=== PATIENT | male | born 1995 | race Caucasian/White ===

== ENCOUNTER 2019-08-06 01:34 | Emergency (ER) | payer OTHER, SELFPAY ==
--- NOTE | ~2019-08-06 | CT_ITS ---
EXAMINATION: CT brain wo con DATE: 08/06/2019 02:08 INDICATION: Seizure. Posterior headache. History of concussions. TECHNIQUE: Computed tomography (CT) of the head was performed without intravenous contrast. The mA wa s adjusted according to patient size. Iterative reconstruction technique was employed. Exam dose: 60 5.33 mGy-cm total exam DLP. COMPARISON: None FINDINGS: No intracranial mass lesion or hemorrhage or cerebrovascular accident. No midline shift or mass effect. Normal masterson-white matter differentiation. Normal ventricular size. No subdural or epidur al hematoma. No fracture or bone destruction of the cranial vault. Included paranasal sinuses and mastoid air cells are normally developed and aerated. IMPRESSION: Negative Reviewed, dictated and finalized at [facility]. Reviewed, dictated and finalized at [facility]. IMPRESSION: Negative
[2019-08-06 01:32] VITALS: PULSE 80; RESP 18; TEMP 36.8; O2SAT 98
[2019-08-06 01:40] VITALS: PULSE 77
--- NOTE | 2019-08-06 01:53 | ECG_ITS ---
Measurements Intervals [place] Rate: 76 P: 67 MD: 158 QRS: 34 QRSD: 108 T: 56 QT: 384 QTc: 433 Interpretive Statements SINUS RHYTHM POSSIBLE LEFT VENTRICULAR HYPERTROPHY BORDERLINE ECG Electronically Signed On 08-06-2019 6:46:46 CDT by Demond Argueta D.O.
--- NOTE | 2019-08-06 01:54 | ED.SEIZURE ---
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 His mother is at bedside giving history. She states she heard screaming tonight and she found patient awake, aggressive, and confused. Then he had what appeared to be a 2 minute tonic clonic seizure. Once his seizure stopped, patient was breathing fast and he started snoring. His mother states he was confused . Patient does not remember what happened. He does reports urinary incontinence with this. He states he thinks he had a seizure a few months ago . He also reports seizure a couple years ago in [place]. He states he has not ever been started on medication. complaint: seizure Description of Episode: tonic-clonic movement, bladder incontinence and post-event confusion Duration of episode: 2 -: minutes(s) Witnessed: Yes - by Other (mother) Trauma: No Seizure History: Yes Place: home Treatments prior to arrival: none Related Data Allergies Allergy/AdvReac Type Severity Reaction Status Date / Time No Known Allergies Allergy Verified 08/06/19 03:04 Review of Systems Review of Systems: All systems reviewed & are unremarkable except as noted in HPI and below Constitutional: Constitutional: Denies chills and Denies fever(s) Eyes: Eyes: Denies no additional eye complaints Cardiovascular: Cardiovascular: Denies chest pain and Denies rapid heart rate Respiratory: Respiratory: Denies cough and Denies dyspnea Gastrointestinal: Gastrointestinal: Denies abdominal pain, Denies diarrhea, Denies nausea and Denies vomiting Neurologic: Denies headache(s), Denies numbness and Denies weakness PMFSH Past Medical History Medical History (Updated 08/06/19 @ 04:18 by Brittany Schulte MD) History of multiple concussions Surgical History Surgical History (Updated 08/06/19 @ 01:55 by Brittany Schulte MD) No significant past surgical history Social History Social History (Updated 08/06/19 @ 01:55 by Brittany Schulte MD) Smoking status: Never smoker Alcohol intake: current Substance use type: marijuana Exam Narrative: Exam Narrative: GENERAL: Well-appearing, well-nourished, and in no acute distress. HEAD: Normocephalic, atraumatic EYES: PERRLA and EOMI, conjunctiva clear without discharge EARS: TM's clear bilaterally without erythema or dullness NOSE: Nares clear, no rhinorrhea or epistaxis THROAT:Mucous membranes moist, Oropharynx normal without erythema, exudate, peritonsillar swelling or fluctuance NECK: Supple, without lymphadenopathy or mass RESPIRATORY: No respiratory distress, Airway patent, Respirations non-labored, Clear to auscultation without rales, rhonchi or wheeze HEART: Regular rate and rhythm. No murmur heard. Normal peripheral pulses. ABDOMEN: Soft, nontender, nondistended, normal active bowel sounds. No masses. No rebound or guarding, No organomegaly. EXTREMITIES: No edema, normal strength with full range of motion. SKIN: Warm, dry, normal color without rash NEURO: Alert and oriented x3. CN 2-12 grossly intact. No focal deficits. PSYCH: Normal mood and affect. Course Reevaluation(s) Reevaluation #1: I have discussed with patient and his mother. They are agreeable with plan Date: 08/06/19 Time: 03:00 Consultations Consultation #1: I have discussed with Dr. Carrillo about patient history and he states patient can follow up in office. start keppra 500 mg BID and given driving restrictions. Date: 08/06/19 Time: 02:59 Vital Signs Vital signs: Vital Signs Temperature 98.2 F 08/06/19 01:32 Pulse Rate 80 08/06/19 01:32 Respiratory Rate 18 08/06/19 01:32 Pulse Oximetry 98 08/06/19 01:32 Temperature 98.2 F 08/06/19 01:3
[2019-08-06 02:02] LABS: Basophils Percent Auto 0.4 % (0.2-1.2); Eosinophils Absolute Auto 0.1 K/mm3 (0-0.3); Eosinophils Percent Auto 1.6 % (0-4.4); Hematocrit 42.1 % (42.0-52.0); Hemoglobin 14.7 g/dL (14.0-18.0); Immature Granulocyte Absolute 0.05 K/mm3 (0.00-0.031); Immature Granulocyte Percent A 0.6 % (0-0.5); Lymphocytes Absolute Auto 3.81 K/mm3 (0.9-3.2); Mean Corpuscular HGB Conc 34.9 g/dl (32-36); Mean Corpuscular Hemoglobin 31.2 pg (26-34); Mean Corpuscular Volume 89.4 fl (80-100); Mean Platelet Volume 10.4 fl (7.4-10.4); Monocytes Absolute Auto 0.6 K/mm3 (0.1-0.6); Monocytes Percent Auto 6.9 % (2.6-8.5); Neutrophils Absolute Auto 3.4 K/mm3 (1.3-6.7); Neutrophils Percent Auto 42.5 % (45.5-73.1); Platelet Count Result 195 k/mm3 (150-375); Red Blood Count 4.71 M/mm3 (4.6-6.20); Red Cell Distribution Width 12.2 % (11.5-14.5); White Blood Count 7.9 K/mm3 (4.5-10.0)
[2019-08-06 02:12] VITALS: BP 132/79; PULSE 65; RESP 16; O2SAT 97
[2019-08-06 02:17] LABS: Alanine Aminotransferase 12 U/L (4-50); Albumin Level 4.6 g/dL (3.5-5.1); Alkaline Phosphatase 64 U/L (38-126); Aspartate Amino Transferase 22 U/L (17-59); Bilirubin,Total 0.5 mg/dL (0.2-1.3); Blood Urea Nitrogen 17 mg/dL (9-20); Calcium 9.4 mg/dL (8.4-10.2); Carbon Dioxide 25 mmol/L (22-30); Chloride 105 mmol/L (98-107); Estimated CRCL calculation 77 ml/min; Estimated Glomerular Filt Rate > 60; Ethanol < 10 mg/dL (<10); Glucose 100 mg/dL (75-110); Magnesium 2.4 mg/dL (1.6-2.3); Potassium 4.3 mmol/L (3.4-5.0); Sodium 140 mmol/L (137-145)
[2019-08-06] MEDS: LACTATED RINGERS 1,000 ML 999 ML IV CONT (02:26)
[2019-08-06 03:00] VITALS: BP 133/82; PULSE 64; RESP 12; O2SAT 98
[2019-08-06] MEDS: levETIRAcetam 1000MG/NACL100ML 1,000 MG/100 ML BAG 400 MG IVPB (03:05)
[2019-08-06 03:54] VITALS: BP 124/54; PULSE 52; RESP 10; O2SAT 98
[2019-08-06 04:04] LABS: Add Urine Microscopic? YES; Appearance Urine Clear (Clear); Bilirubin Urine Negative (Negative); Blood Urine Negative (Negative); Color Urine Straw (Yellow); Glucose Urine UA Negative (Negative); Ketones Urine Negative (Negative); Leukocyte Esterase Ur Negative LEU/UL (Negative); Mucus Urine Rare /lpf; Nitrate Urine Negative (Negative); Protein Urine 1+ mg/dL (Negative); RBC Urine 0-2 /hpf (0-2); Specific Grav Ur 1.019 (1.001-1.035); Urobilinogen Urine Negative mg/dL (<2.0)
[2019-08-06 04:23] LABS: Amphetamine Screen Urine Negative (Negative); Barbiturate Screen Urine Negative (Negative); Benzodiazepines Screen Urine Negative (Negative); Cannabinoid Screen Urine Positive (Negative); Cocaine Screen Urine Negative (Negative); Methadone Screen Urine Negative (Negative); Opiate Screen Urine Negative (Negative); Phencyclidine Screen Urine Negative (Negative)
== END 2019-08-06 04:30 | disposition home or self-care (01) ==
PROVIDERS: Emergency Provider General Practice; PCP Family Medicine
DX: R56.9 Unspecified convulsions (principal)
CPT/HCPCS: 36415; 70450; 80053; 80307; 81001; 83735; 85025; 87086; 93005; 96365; 99284; J1953; J7120

== ENCOUNTER 2020-02-26 06:51 | Outpatient (NON) | payer OTHER, SELFPAY ==
[2020-02-27 00:16] LABS: SARS-CoV-2 RNA PCR Positive
== END 2020-02-26 06:52 ==
PROVIDERS: PCP Family Medicine; Visit Provider Nurse Practitioner Family
DX: U07.1 COVID-19 (principal); R68.89 Other general symptoms and signs; R05 Cough
CPT/HCPCS: C9803; U0003; U0005

== ENCOUNTER 2021-06-23 18:05 | Emergency (ER) | payer OTHER, SELFPAY ==
[2021-06-23 18:16] VITALS: BP 123/74; PULSE 79; RESP 16; TEMP 36.7; O2SAT 100
[2021-06-23 18:24] VITALS: BP 123/74; PULSE 79; RESP 16; TEMP 36.7; O2SAT 100
--- NOTE | 2021-06-23 18:25 | ED.WOUNDLAC ---
HPI - Wound/Laceration General Chief Complaint: Wound/Laceration Stated Complaint: WC,work injury Time Seen by Provider: 06/23/21 18:25 Source: patient and RN notes reviewed Mode of arrival: ambulatory Limitations: no limitations History of Present Illness HPI narrative: 25-year-old male presents with concern for abrasion to his right lower leg. Reports he abrades the leg on a tammy stake at work today. He is not sure of his last tetanus vaccination. He denies any limited strength, sensation, range of motion in the leg or distal to the injury. He denies drainage, swelling, or warmth Extremity Location: Right: lower leg Related Data Allergies Allergy/AdvReac Type Severity Reaction Status Date / Time No Known Allergies Allergy Verified 09/24/20 13:30 Review of Systems Review of Systems: CONSTITUTIONAL: Denies malaise, chills, sweats, or fever. SKIN: Reports wound on the right anterior lower leg MUSCULOSKELETAL: Denies muscle skeletal pain NEUROLOGIC: Denies numbness, weakness All systems reviewed & are unremarkable except as noted in HPI and below PMFSH Past Medical History Medical History (Updated 06/23/21 @ 18:30 by Ange Smith NP) History of multiple concussions Surgical History Surgical History (System 09/24/20 @ 13:30 by Anai Rice) No significant past surgical history Social History Social History (System 09/24/20 @ 13:30 by Anai Rice) Smoking status: Never smoker Alcohol intake: current Drinks per week: 1 Substance use: current Substance use type: marijuana Gender identity (if verbalized by the patient): Male Comments At time of signature, agree with nursing past medical, surgical, social and family history. There is no relevant family history pertinent to the presenting complaint Exam Narrative: GENERAL: Well-appearing, well-nourished, and in no acute distress. HEAD: Normocephalic, atraumatic. EYES: PERRLA, conjunctivae clear, and EOMI. ENT: Mucous membranes moist. Oropharynx without edema, erythema or lesions. NECK: Supple. No lymphadenopathy CHEST: Clear to auscultation. No respiratory distress. HEART: Regular rate and rhythm. SKIN: Warm, dry. Superficial abrasion noted to the right anterior leg approximately 17cm in length with very mild surrounding erythema. No induration, warmth or drainage noted NEURO: Alert and oriented x3. PSYCH: Normal mood and affect Course Course Emergency Course: Patient is aware of diagnosis, understands and agrees to treatment plan. Anticipatory guidance given. Patient agrees to follow-up as directed and is aware of reasons to seek care at the emergency department. Portions of this record may have been created with voice recognition software Level of Care: Express Care Visit Vital Signs Vital signs: Vital Signs Temperature 98.0 F 06/23/21 18:16 Pulse Rate 79 06/23/21 18:16 Respiratory Rate 16 06/23/21 18:16 Blood Pressure 123/74 06/23/21 18:16 Pulse Oximetry 100 06/23/21 18:16 Temperature 98.0 F 06/23/21 18:24 Pulse Rate 79 06/23/21 18:24 Respiratory Rate 16 06/23/21 18:24 Blood Pressure 123/74 06/23/21 18:24 Pulse Oximetry 100 06/23/21 18:24 Reviewed. MDM - Wound/Laceration MDM Narrative Medical decision making narrative: Wound explored for foreign body and copious irrigation provided with no evidence of FB. Discussed the potential of retained foreign body with the patient and signs/symptoms that should prompt the patient to immediately go to the ED for reevaluation. The laceration was identified to be [XXX] cm in length and located at [XXX]. The laceration was cleansed with [XXX] and no debris was noted. Local anesthesia was obtained by injecting 1% lidocaine at the laceration site. The laceration was then irrigated with 500cc of high-pressure irrigation. The wound was explored and no foreign bodies were found. There was no evidence of tendon or nerve lacerations. The wound was cl
[2021-06-23] MEDS: TETANUS,DIPHTHERIA,AC PERTUSSIS ADULT (0.5 ML) BOOSTRIX IM (18:37)
== END 2021-06-23 18:40 | disposition home or self-care (01) ==
PROVIDERS: Emergency Provider Nurse Practitioner; PCP Family Medicine
DX: S80.812A Abrasion, left lower leg, initial encounter (principal); Z23 Encounter for immunization; W22.09XA Striking against other stationary object, initial encounter; Y99.0 Civilian activity done for income or pay
CPT/HCPCS: 90471; 90715; 99213; G0463

== ENCOUNTER 2022-09-22 11:17 | Emergency (ER) | payer OTHER, SELFPAY ==
--- NOTE | ~2022-09-22 | CT_ITS ---
EXAMINATION: CT brain wo con DATE: 09/22/2022 12:49 INDICATION: Seizure. Head injury. TECHNIQUE: Computed tomography (CT) of the head was performed without intravenous contrast. The mA wa s adjusted according to patient size. Iterative reconstruction technique was employed. The dose-lengt h product was 605.33 mGy-cm. COMPARISON: Head CT 08/06/2019 FINDINGS: There is no intracranial hemorrhage, acute infarction, or abnormal intracranial mass lesion . The ventricles are normal in size. The orbits are normal. The paranasal sinuses are clear. The mast oid air cells are normal. There is right periorbital soft tissue swelling. IMPRESSION: 1. Normal brain. Reviewed, dictated and finalized at [facility]. IMPRESSION: 1. Normal brain.
--- NOTE | ~2022-09-22 | CT_ITS ---
EXAMINATION: CT lumbar spine wo con DATE: 09/22/2022 12:49 INDICATION: Midline back pain. Fall. TECHNIQUE: Computed tomography (CT) of the lumbar spine was performed without intravenous contrast. A utomated exposure control and iterative reconstruction technique were employed. The dose-length produ ct was 354.81 mGy-cm. COMPARISON: None FINDINGS: Bone alignment is normal. Vertebral body heights and intervertebral disc heights are normal . The following disc levels are specifically discussed: L1-L2: The disc does not extend beyond the endplate margin. There is moderate right and mild left fac et joint osteoarthritis. There is no neural foraminal stenosis. There is no central canal stenosis. L2-L3: The disc does not extend beyond the endplate margin. There is mild bilateral facet joint osteo arthritis. There is no neural foraminal stenosis. There is no central canal stenosis. L3-L4: The disc is mildly bulging. There is mild bilateral facet joint osteoarthritis. There is mild bilateral neural foraminal stenosis. There is no central canal stenosis. L4-L5: The disc is bulging. There is mild bilateral facet joint osteoarthritis. There is mild bilater al neural foraminal stenosis. There is mild central canal stenosis. L5-S1: The disc is bulging. There is mild bilateral facet joint osteoarthritis. There is mild bilater al neural foraminal stenosis. There is mild central canal stenosis. IMPRESSION: 1. No fracture. 2. Mild lumbar spondylosis. Reviewed, dictated and finalized at [facility].
--- NOTE | 2022-09-22 11:28 | ECG_ITS ---
Measurements Intervals [place] Rate: 62 P: 61 ND: 157 QRS: 31 QRSD: 110 T: 41 QT: 401 QTc: 409 Interpretive Statements SINUS RHYTHM EARLY REPOLARIZATION [ST ELEVATION WITH NORMALLY INFLECTED T WAVE] NORMAL ECG COMPARED TO ECG 08/06/2019 01:34:58 NO SIGNIFICANT CHANGES Electronically Signed On 09-22-2022 11:34:37 CDT by Everardo Kelly M.D.
[2022-09-22 11:29] VITALS: BP 127/73; PULSE 62; PULSE 67; RESP 17; TEMP 36.6; O2SAT 98
[2022-09-22 11:38] LABS: Basophils Percent Auto 0.3 % (0.2-1.2); Eosinophils Percent Auto 0.1 % (0-4.4); Hematocrit 45.9 % (42.0-52.0); Immature Granulocyte Absolute 0.04 K/mm3 (0.00-0.031); Immature Granulocyte Percent A 0.4 % (0-0.5); Lymphocytes Absolute Auto 1.43 K/mm3 (0.9-3.2); Lymphocytes Percent Auto 12.6 % (18.3-44.2); Mean Corpuscular HGB Conc 34.9 g/dl (32-36); Mean Corpuscular Hemoglobin 30.7 pg (26-34); Mean Corpuscular Volume 88.1 fl (80-100); Mean Platelet Volume 10.1 fl (7.4-10.4); Monocytes Absolute Auto 0.5 K/mm3 (0.1-0.6); Monocytes Percent Auto 4.6 % (2.6-8.5); Neutrophils Absolute Auto 9.4 K/mm3 (1.3-6.7); Platelet Count Result 235 k/mm3 (150-375); Red Blood Count 5.21 M/mm3 (4.6-6.20); Red Cell Distribution Width 12.9 % (11.5-14.5); White Blood Count 11.4 K/mm3 (4.5-10.0)
[2022-09-22 11:53] LABS: Alanine Aminotransferase 32 U/L (6-50); Alkaline Phosphatase 79 U/L (38-126); Anion Gap 10 mmol/L (8-16); Aspartate Amino Transferase 36 U/L (17-59); Bilirubin,Total 0.7 mg/dL (0.2-1.3); Blood Urea Nitrogen 11 mg/dL (9-20); Calcium 9.5 mg/dL (8.4-10.2); Carbon Dioxide 26 mmol/L (22-30); Chloride 105 mmol/L (98-107); Estimated CRCL calculation 88 ml/min; Estimated Glomerular Filt Rate > 60; Glucose 95 mg/dL (65-110); Potassium 4.2 mmol/L (3.4-5.0); Sodium 141 mmol/L (137-145)
--- NOTE | 2022-09-22 12:37 | ED.SEIZURE ---
HPI - Seizure General Chief Complaint: Seizure Stated Complaint: injuries from seizure Time Seen by Provider: 09/22/22 12:04 History of Present Illness HPI Narrative: Patient is a 26-year-old male with a history of seizures, numerous concussions presenting after a seizure. Patient states that he ran out of his Keppra approximately 1 week ago. He had a seizure last night and struck his head bruising his right eye. States that he also has lower back pain. He is concerned for another concussion. He denies tongue biting or urinary incontinence. States that he was able to see his neurologist earlier this morning who refilled his Keppra. He denies fevers, headache, numbness or weakness, vision changes, chest pain, shortness of breath, cough, abdominal pain, vomiting, diarrhea, dysuria. Seizure History: Yes Related Data Allergies Allergy/AdvReac Type Severity Reaction Status Date / Time No Known Allergies Allergy Verified 09/22/22 11:34 Review of Systems Review of Systems: All systems reviewed & are unremarkable except as noted in HPI and below PMFSH Past Medical History Medical History History of multiple concussions Surgical History Surgical History No significant past surgical history Social History Social History Smoking status: Never smoker Alcohol intake: current Drinks per week: 1 Substance use: current Substance use type: marijuana Living arrangements: with family Occupation/Education: occupation Gender identity (if verbalized by the patient): Male Exam Narrative: GENERAL: Well-appearing, well-nourished, and in no acute distress. Pleasant and cooperative HEAD: Normocephalic, right-sided periorbital hematoma EYES: PERRLA and EOMI. conjunctiva normal bilaterally ENT: Nares clear, no rhinorrhea or epistaxis. Mucous membranes moist. NECK: Supple. CHEST: Clear to auscultation. No respiratory distress. HEART: Regular rate and rhythm ABDOMEN: Soft, nontender, nondistended EXTREMITIES: Normal range of motion. No edema. BACK: +midline lumbar tenderness SKIN: Warm, dry, no rash. NEURO: No focal deficits. Alert and oriented x3. PSYCH: Normal mood and affect. Course Vital Signs Vital signs: Vital Signs Temperature 97.8 F 09/22/22 11:29 Pulse Rate 67 09/22/22 11:29 Respiratory Rate 17 09/22/22 11:29 Blood Pressure 127/73 09/22/22 11:29 Pulse Oximetry 98 09/22/22 11:29 Oxygen Delivery Room Air 09/22/22 11:29 Temperature 97.8 F 09/22/22 11:29 Pulse Rate 67 09/22/22 14:41 Respiratory Rate 18 09/22/22 14:41 Blood Pressure 120/75 09/22/22 14:41 Pulse Oximetry 99 09/22/22 14:41 Oxygen Delivery Room Air 09/22/22 11:29 MDM - Seizure MDM Narrative Medical decision making narrative: Patient is a 26-year-old male presenting after a seizure. Vitals are stable. Exam remarkable for the above. Plan for blood work, CT brain, CT lumbar spine, pain control. EKG per my interpretation shows normal sinus rhythm, normal axis, benign early repolarization. CT brain and lumbar spine show no acute abnormalities. Blood work is unremarkable. Patient was given a dose of his Keppra. He actually saw his neurologist earlier today and was provided with a refill. Advised that he restart taking this as prescribed. Advised that he follow-up with his primary and neurologist as scheduled. Appropriate return precautions given. Discussed appropriate concussion precautions. Patient agreeable with this plan. Discharged in stable condition. Differential Diagnosis Differential diagnosis: Likely other (seizure, noncompliance with antiepileptics, back pain, periorbital hematoma) Medical Records Attestation: I reviewed the patient's medical records. Lab Data Attestation: I reviewed the patient's lab results.
[2022-09-22] MEDS: KETOROLAC 15 MG/ML VIAL (*BKC) IV PUSH (12:58)
[2022-09-22 12:59] VITALS: BP 122/72; PULSE 76; RESP 13; O2SAT 100
[2022-09-22] MEDS: levETIRAcetam 500 MG TABLET PO (13:42)
[2022-09-22 13:43] VITALS: BP 102/58; PULSE 57; RESP 14; O2SAT 99
[2022-09-22 14:41] VITALS: BP 120/75; PULSE 67; RESP 18; O2SAT 99
== END 2022-09-22 14:41 | disposition home or self-care (01) ==
PROVIDERS: Emergency Medicine; Emergency Provider Emergency Medicine; PCP Family Medicine
DX: S00.11XA Contusion of right eyelid and periocular area, initial encounter (principal); R56.9 Unspecified convulsions; M54.50 Low back pain, unspecified; M47.816 Spondylosis without myelopathy or radiculopathy, lumbar region; W22.8XXA Striking against or struck by other objects, initial encounter
CPT/HCPCS: 36415; 70450; 72131; 80053; 85025; 93005; 96374; 99284; A9270; J1885

== ENCOUNTER 2023-02-04 12:16 | Outpatient (CLI) | payer SELFPAY ==
[2023-02-04 13:07] LABS: Influenza A QL RT-PCR Positive (Negative); Influenza B QL RT-PCR Negative (Negative); RSV RNA, RT-PCR Negative (Negative); SARS-CoV-2 RNA PCR Negative (Negative)
== END 2023-02-04 12:17 | disposition home or self-care (01) ==
LOC: ANHLAB 12:19
PROVIDERS: PCP Family Medicine; Visit Provider Physician Assistant
DX: R50.9 Fever, unspecified (principal); R05.9 Cough, unspecified; Z20.822 Contact with and (suspected) exposure to COVID-19
CPT/HCPCS: 87637